=== PATIENT | female | born 1940 | race Caucasian/White ===

== ENCOUNTER 2020-10-20 16:30 | Inpatient (IN) ==
[2020-10-20 19:32] LABS: ABS Basophils 0.1 10^3/ul (0-0.2); ABS Eosinophils 0.1 10^3/ul (0-0.6); ABS Monocytes 1.1 10^3/ul (0-0.8); ABS Neutrophils 10.4 10^3/ul (1.5-7.7); Eosinophil % 0.7 %; Hematocrit 39 % (35-47); Lymphocyte % 7.8 %; Mean Corpuscular HGB Conc 34 g/dL (31-36); Mean Corpuscular Hemoglobin 30 pg (27-31); Mean Corpuscular Volume 89 fL (80-97); Platelet Count 357 10^3/uL (150-450); Red Blood Count 4.34 10^6 /uL (3.70-4.87); Red Cell Distribution Width 14 % (10-15); White Blood Count 12.6 10^3/uL (3.5-10.8)
[2020-10-20 19:46] LABS: Activated Partial Thrombo Time 30.8 seconds (26.0-38.0); INR 1.12 (0.86-1.15)
[2020-10-20 19:51] LABS: Albumin 4.1 g/dL (3.2-5.2); Albumin/Globulin Ratio 1.4 (1-3); Calcium 9.7 mg/dL (8.6-10.3); EGFR African American 76.4 (>60); EGFR Non-African American 63.2 (>60); Globulin 2.9 g/dL (2-4); Potassium 3.6 mmol/L (3.5-5.0); Total Bilirubin 0.4 mg/dL (0.2-1.0)
[2020-10-20] MEDS ORDERED: Dextrose 50% Syringe 50 ml 25 GM/50 ML SYRINGE IV PUSH PRN (20:16)
[2020-10-20] MEDS ORDERED: Albuterol HFA INHALER 8 gm MDI INH PRN (20:21)
[2020-10-20] MEDS ORDERED: Potassium Chlor 20 meq TAB.ER PO ONE (21:51)
[2020-10-20 21:55] LABS: Urine Appearance Cloudy; Urine Bilirubin Negative (Negative); Urine Blood Negative (Negative); Urine Color Yellow; Urine Glucose 1+(50 mg/dL) (Negative); Urine Ketones Negative (Negative); Urine Nitrite Negative (Negative); Urine Protein Negative (Negative); Urine Specific Gravity 1.009 (1.002-1.030); Urine Urobilinogen Negative (Negative)
[2020-10-20] MEDS ORDERED: Lactated Ringers 1000 ml BAG 1,000 ML IV SCH (22:00)
[2020-10-20 22:16] LABS: Urine Bacteria 1+ (Absent); Urine Red Blood Cell Trace(0-2/hpf) (Absent); Urine Squamous Epithelial Cell Present (Absent); Urine White Blood Cell 3+(>20/hpf) (Absent)
[2020-10-20] MEDS ORDERED: Polyethylene Glycol 3350 17 GM PACKET PO PRN (22:18)
[2020-10-20 23:43] LABS: Troponin I 0.02 ng/mL (<0.03)
[2020-10-21] MEDS: Insulin GLARGINE 100 un/ml 10 ml VIAL SUBCUT SCH (00:54)
[2020-10-21] MEDS: Heparin 5000 UNITS/ML 1 mL VIAL SUBCUT SCH ×2 (00:55→05:16)
[2020-10-21] MEDS: Morphine 2 MG/ML SYRINGE IV PRN ×3 (04:10→16:27)
[2020-10-21] MEDS ORDERED: SPIRIVA Respimat (tiotropium) 2.5 mcg/inh Inhaler INH SCH ×2 (09:00→21:00)
[2020-10-21] MEDS: Mometasone/Formoter 100/5 MDI INH SCH ×2 (09:17→20:40)
[2020-10-21] MEDS ORDERED: Lactated Ringers 1000 ml BAG 1,000 ML IV SCH (11:05)
[2020-10-21] MEDS: NS 0.9% 1000 ml BAG 1,000 ML IV SCH (11:33)
[2020-10-21] MEDS ORDERED: Albuterol/Ipratropium NEB.SOL (2.5/0.5 MG) 3 ML NEB.SOLN INH SCH (12:00)
[2020-10-21] MEDS ORDERED: cefTRIAXone 1 gm/50 mL NS BAG 1 GM/50 ML BAG IVPB SCH (12:00)
[2020-10-21] MEDS ORDERED: ceFAZolin 2 GM in NS PREMIX 2 GM/100 ML BAG IVPB ONE (16:55)
[2020-10-21] MEDS ORDERED: Bupivacaine 0.5% SDV PF 30ML VIAL ONE (19:29)
[2020-10-21] MEDS ORDERED: fentaNYL 250 mcg/5 ml 50 MCG/ML 5 ml VIAL (250 MCG) ONE (19:58)
[2020-10-21] MEDS ORDERED: Phenylephrine 40 mcg/mL 10mL (400mcg) SYRINGE ONE (20:10)
[2020-10-21] MEDS ORDERED: EPHEDrine (Pressors) 50 MG/ML VIAL ONE (20:10)
[2020-10-21] MEDS ORDERED: fentaNYL 100 mcg/2 ml 50 MCG/ML VIAL ONE (21:46)
[2020-10-21] MEDS ORDERED: Dexamethasone IV 4 MG/ML VIAL 1 ml VIAL ONE (22:06)
[2020-10-21] MEDS ORDERED: fentaNYL 100 mcg/2 ml 50 MCG/ML VIAL IV PRN (22:50)
[2020-10-21] MEDS ORDERED: Naloxone 0.4 mg VIAL 0.4 mg/ml 1 ml VIAL IV PRN (22:50)
[2020-10-22] MEDS: Insulin GLARGINE 100 un/ml 10 ml VIAL SUBCUT SCH ×2 (00:32→22:27)
[2020-10-22] MEDS: ceFAZolin 1 GM X 3 DOSES POST-OP Q8H (AddVan) IVPB SCH ×3 (04:33→22:10)
[2020-10-22 06:08] LABS: ABS Lymphocytes 0.6 10^3/ul (1.0-4.8); ABS Monocytes 0.3 10^3/ul (0-0.8); ABS Neutrophils 12.8 10^3/ul (1.5-7.7); Hematocrit 35 % (35-47); Hemoglobin 11.8 g/dL (12.0-16.0); Lymphocyte % 4.5 %; Mean Corpuscular HGB Conc 34 g/dL (31-36); Mean Corpuscular Hemoglobin 30 pg (27-31); Mean Corpuscular Volume 89 fL (80-97); Mean Platelet Volume 8.2 fL (7.4-10.4); Platelet Count 334 10^3/uL (150-450); Red Blood Count 3.92 10^6 /uL (3.70-4.87); Red Cell Distribution Width 14 % (10-15); White Blood Count 13.8 10^3/uL (3.5-10.8)
[2020-10-22 06:26] LABS: Calcium 8.8 mg/dL (8.6-10.3); EGFR African American 80.8 (>60); EGFR Non-African American 66.7 (>60); Potassium 4.1 mmol/L (3.5-5.0)
[2020-10-22] MEDS: Mometasone/Formoter 100/5 MDI INH SCH ×2 (07:27→21:30)
[2020-10-22] MEDS: Albuterol HFA INHALER 8 gm MDI INH PRN ×2 (07:28→21:37)
[2020-10-22] MEDS: SPIRIVA Respimat (tiotropium) 2.5 mcg/inh Inhaler INH SCH (07:29)
[2020-10-22] MEDS: oxyCODONE/Acetamin 5/325 mg TAB PO PRN ×2 (12:29→22:10)
[2020-10-22] MEDS ORDERED: Enoxaparin 30 MG/0.3 ML SYR SUBCUT SCH (18:00)
[2020-10-22] MEDS: NS 0.9% 1000 ml BAG 1,000 ML IV SCH (23:48)
[2020-10-23 04:47] LABS: Hematocrit 31 % (35-47); Hemoglobin 10.4 g/dL (12.0-16.0); Mean Corpuscular HGB Conc 33 g/dL (31-36); Mean Corpuscular Hemoglobin 30 pg (27-31); Mean Corpuscular Volume 89 fL (80-97); Platelet Count 321 10^3/uL (150-450); Red Cell Distribution Width 14 % (10-15); White Blood Count 20.9 10^3/uL (3.5-10.8)
[2020-10-23 05:06] LABS: Calcium 8.9 mg/dL (8.6-10.3); EGFR African American 85.6 (>60); EGFR Non-African American 70.7 (>60); Potassium 4.1 mmol/L (3.5-5.0)
[2020-10-23 05:54] LABS: ABS Monocytes 1.8 10^3/ul (0-0.8); ABS Neutrophils 18.1 10^3/ul (1.5-7.7); Lymphocyte % 4.8 %
[2020-10-23] MEDS: oxyCODONE/Acetamin 5/325 mg TAB PO PRN ×2 (06:10→12:40)
[2020-10-23] MEDS: Mometasone/Formoter 100/5 MDI INH SCH (09:21)
[2020-10-23] MEDS: SPIRIVA Respimat (tiotropium) 2.5 mcg/inh Inhaler INH SCH (09:21)
[2020-10-23 12:23] VITALS: BP 136/59
== END 2020-10-23 13:20 | DRG 504 ==
LOC: ED 16:30 → SSU 20:13 → SUATTDRO 20:13 → SSU 23:58
PROVIDERS: ADMIT Internal Medicine; ATTEND Student in an Organized Health Care Education/Training Program